=== PATIENT | female | born 1935 | race Caucasian/White ===

== ENCOUNTER → 2021-01-17 14:26 | Outpatient (BNVA) | payer MEDICARE, SELFPAY | PROVIDERS: Family Provider Family Medicine; Visit Provider Podiatrist Foot & Ankle Surgery | DX: L81.9 Disorder of pigmentation, unspecified (principal) | CPT/HCPCS: 88304 ==

== ENCOUNTER → 2021-10-28 13:37 | Outpatient (BNVA) | payer MEDICARE, SELFPAY | PROVIDERS: Family Provider Family Medicine; PCP Family Medicine; Visit Provider Clinical Nurse Specialist Adult Health | DX: J22 Unspecified acute lower respiratory infection (principal) | CPT/HCPCS: 80053; 85025; 85651; 86140 ==

== ENCOUNTER → 2022-01-01 12:35 | Outpatient (BNVA) | payer MEDICARE, SELFPAY | PROVIDERS: PCP Family Medicine; Visit Provider Nurse Practitioner Family | DX: R35.0 Frequency of micturition (principal); N39.0 Urinary tract infection, site not specified; R35.1 Nocturia; R32 Unspecified urinary incontinence | CPT/HCPCS: 81003; 87086; 99203 ==

== ENCOUNTER → 2022-01-20 10:46 | Outpatient (BNVA) | payer MEDICARE, SELFPAY | PROVIDERS: PCP Family Medicine; Visit Provider Nurse Practitioner Family | DX: N39.0 Urinary tract infection, site not specified (principal); R35.0 Frequency of micturition; R32 Unspecified urinary incontinence | CPT/HCPCS: 99213 ==

== ENCOUNTER → 2022-05-29 09:33 | Outpatient (BNVA) | payer MEDICARE, SELFPAY | PROVIDERS: PCP Family Medicine; Visit Provider Urology | DX: N39.0 Urinary tract infection, site not specified (principal) | CPT/HCPCS: 81003; 99213 ==

== ENCOUNTER 2022-11-27 17:48 | Emergency (ER) | payer MEDICARE, SELFPAY ==
[2022-11-27 17:51] VITALS: BP 144/106; PULSE 95; RESP 15; TEMP 36.7; O2SAT 97
[2022-11-27 18:00] VITALS: BP 151/91; PULSE 93; O2SAT 96
--- NOTE | 2022-11-27 18:14 | CTR_ITS ---
PROCEDURE INFORMATION: Exam: CT Head Without Contrast Exam date and time: 11/27/2022 6:23 PM Age: 87 years old Clinical indication: Injury or trauma; Fall; Blunt trauma (contusions or hematomas); Additional info: Fall head trauma TECHNIQUE: Imaging protocol: Computed tomography of the head without contrast. Radiation optimization: All CT scans at this facility use at least one of these dose optimization techniques: automated exposure control; mA and/or kV adjustment per patient size (includes targeted exams where dose is matched to clinical indication); or iterative reconstruction. REPORTING DATA: Count of CT and Cardiac NM exams in prior 12 months: This patient has received 0 known CTs and 0 known cardiac nuclear medicine studies in the 12 months prior to the current study. COMPARISON: CT head wo con* [id number] 10/29/2021 12:54 PM RADIATION DOSE METRICS: Total DLP (mGy-cm): 1200 FINDINGS: Brain: Right frontal traumatic subarachnoid hemorrhage and hemorrhagic parenchymal contusion. Right posteromedial temporal lobe small 7.5 mm focal area of hemorrhagic contusion. Punctate benign calcifications in the basal ganglia bilaterally. Moderate diffuse white matter disease likely reflecting chronic microvascular ischemic changes. Cerebral ventricles: No ventriculomegaly. Paranasal sinuses: Visualized sinuses are unremarkable. No fluid levels. Mastoid air cells: Visualized mastoid air cells are well aerated. Bones/joints: Please refer to same-day CT facial bones for findings in this area. Soft tissues: Unremarkable. CT/CT head wo con* [id number] IMPRESSION: 1. Right frontal traumatic subarachnoid hemorrhage and hemorrhagic parenchymal contusion. 2. Right posteromedial temporal lobe small 7.5 mm focal area of hemorrhagic contusion. 3. Punctate benign calcifications in the basal ganglia bilaterally. 4. Moderate diffuse white matter disease likely reflecting chronic microvascular ischemic changes. 5. Please refer to same-day CT facial bones for findings in this area.
--- NOTE | 2022-11-27 18:14 | CTR_ITS ---
PROCEDURE INFORMATION: Exam: CT Maxillofacial Without Contrast Exam date and time: 11/27/2022 6:23 PM Age: 87 years old Clinical indication: Injury or trauma; Fall; Blunt trauma (contusions or hematomas); Additional info: Fall head trauma, right orbit trauma TECHNIQUE: Imaging protocol: Computed tomography of the face without contrast. Radiation optimization: All CT scans at this facility use at least one of these dose optimization techniques: automated exposure control; mA and/or kV adjustment per patient size (includes targeted exams where dose is matched to clinical indication); or iterative reconstruction. REPORTING DATA: Count of CT and Cardiac NM exams in prior 12 months: This patient has received 0 known CTs and 0 known cardiac nuclear medicine studies in the 12 months prior to the current study. COMPARISON: [place] Facial B[place] IV* [id number] 09/25/2016 7:32 PM RADIATION DOSE METRICS: Total DLP (mGy-cm): 630 FINDINGS: Orbital cavities: Right inferior orbital wall and lateral orbital wall minimally displaced fractures with associated mild intra orbital emphysema. Bones/joints: Right zygomatic arch nondisplaced fracture. Paranasal sinuses: Right maxillary sinus anterior and lateral wall mildly displaced fractures. Partial opacification of the paranasal sinuses. Soft tissues: Unremarkable. CT/CT facial bones wo con* [id number] IMPRESSION: 1. Right zygomatic arch nondisplaced fracture. 2. Right inferior orbital wall and lateral orbital wall minimally displaced fractures with associated mild intra orbital emphysema. 3. Right maxillary sinus anterior and lateral wall mildly displaced fractures. 4. Partial opacification of the paranasal sinuses.
--- NOTE | 2022-11-27 18:14 | CTR_ITS ---
PROCEDURE INFORMATION: Exam: CT Cervical Spine Without Contrast Exam date and time: 11/27/2022 6:23 PM Age: 87 years old Clinical indication: Injury or trauma; Fall; Blunt trauma; Additional info: Fall pain TECHNIQUE: Imaging protocol: Computed tomography of the cervical spine without contrast. Radiation optimization: All CT scans at this facility use at least one of these dose optimization techniques: automated exposure control; mA and/or kV adjustment per patient size (includes targeted exams where dose is matched to clinical indication); or iterative reconstruction. REPORTING DATA: Count of CT and Cardiac NM exams in prior 12 months: This patient has received 0 known CTs and 0 known cardiac nuclear medicine studies in the 12 months prior to the current study. COMPARISON: CT head wo con* [id number] 10/29/2021 12:54 PM RADIATION DOSE METRICS: Total DLP (mGy-cm): 130 FINDINGS: Bones/joints: Multilevel degenerative disc space narrowing throughout the spine. C2-C3: No significant disc bulge or herniation. No severe spinal canal stenosis. No significant neural foraminal narrowing. C3-C4: No significant disc bulge or herniation. No severe spinal canal stenosis. No significant neural foraminal narrowing. C4-C5: No significant disc bulge or herniation. No severe spinal canal stenosis. No significant neural foraminal narrowing. C5-C6: No significant disc bulge or herniation. No severe spinal canal stenosis. No significant neural foraminal narrowing. C6-C7: No significant disc bulge or herniation. No severe spinal canal stenosis. No significant neural foraminal narrowing. C7-T1: No significant disc bulge or herniation. No severe spinal canal stenosis. No significant neural foraminal narrowing. Lungs: Lung apices are normal. Soft tissues: Unremarkable. CT/CT cervical spin wo con* [id number] IMPRESSION: Negative for fracture or dislocation.
--- NOTE | 2022-11-27 18:14 | XRR_ITS ---
PROCEDURE INFORMATION: Exam: XR Right Forearm Exam date and time: 11/27/2022 6:32 PM Age: 87 years old Clinical indication: Injury or trauma; Fall; Additional info: Fall trauma TECHNIQUE: Imaging protocol: Radiologic exam of the right forearm. Views: 2 views. COMPARISON: No relevant prior studies available. FINDINGS: Bones/joints: Subtle suspected distal radial metaphyseal fracture with possible involvement at the radiocarpal joint, a CT could further characterize this. 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 Soft tissues: Normal. XR/XR forearm RT 2V [id number] IMPRESSION: 1. Subtle suspected distal radial metaphyseal fracture with possible involvement at the radiocarpal joint, a CT could further characterize this. 2. 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
--- NOTE | 2022-11-27 18:16 | ED_ITS ---
HPI - Fall General: Chief Complaint: Fall Stated Complaint: FALL Time Seen by Provider: 11/27/22 18:04 History of Present Illness: Patient presents to the ER by EMS status post fall with positive loss of consciousness. Patient does remember how she fell but family states she was usi ng her walker in the kitchen and when they left the room they heard her fall. Family states loss of consciousness for couple minutes. Patient is now alert and oriented to her baseline. Denies any pain at this time except for her right arm region. Patient has swelling and a large ecchymosis to her right eyelid periorbital region. Patient is in a c-collar per EMS secondary to mechanism of action. Patient probably has a laceration to right temporal area because there is dried blood on the right side of her head. Patient is not on any blood thinners. Review of Systems General: Reports: 10 or more systems reviewed and unremarkable except in HPI and below PFSH ED PFSH: Medical History Dyslipidemia GERD (gastroesophageal reflux disease) Hypertension IBS (irritable bowel syndrome) Recurrent UTI Surgical History History of partial hysterectomy Family History Mother , AT AGE 84 Heart attack Father No problems noted. Social History Smoking and tobacco status: never smoked Alcohol intake: never Substance/Drug Use: never Marital status: / Current occupational status: retired Physical Exam Const: COMMON NORMALS: no acute distress, average body habitus, patient oriented x3, no limitations, healthy appearing, alert and well nourished HENMT: COMMON NORMALS: normocephalic, hearing grossly normal bilaterally, external ears normal, Normal external nose present and moist oral mucous membranes; head/scalp not atraumatic (Positive swelling and ecchymosis to right periorbital region, probable lace) HEAD & SCALP: normocephalic; not atraumatic (Positive swelling and ecchymosis to right periorbital region, probable lace) NOSE: Normal external nose present EXTERNAL EAR: Yes external ears normal Eye: COMMON NORMALS: Equal, round and reactive pupils present, EOMs intact bilaterally, conjunctivae normal and no scleral icterus CONJUNCTIVA: Yes conjunctivae normal PUPIL: Yes Equal, round and reactive pupils present Neck/C-Spine: COMMON NORMALS: no JVD OTHER: C-spine in C-spine collar. Patient says no tenderness. Lymph: LYMPHATIC: no lymphadenopathy noted Chest: COMMONS NORMALS: normal inspection of the chest and normal palpation of entire chest wall Resp: COMMON NORMALS: normal respiratory effort, No retractions, No use of accessory muscles and clear to auscultation bilaterally AUSCULTATION: clear to auscultation bilaterally Cardio: COMMON NORMALS: no JVD, regular rate, regular rhythm, S1 normal heart sound present, S2 normal heart sound present, No gallops present (Cardio), No clicks present (Cardio), No murmurs present (Cardio) and No rub (Cardio) RATE: regular rate RHYTHM: regular rhythm HEART SOUNDS: S1 normal heart sound present and S2 normal heart sound present GI: COMMON NORMALS: Normal to inspection, nondistended, normoactive bowel sounds present, Soft to palpation, non-tender, No hepatosplenomegaly present and no masses PALPATION: Yes Soft to palpation and Yes No hepatosplenomegaly present : COMMON NORMALS: Yes no CVA tenderness BLADDER/KIDNEY EXAM: Yes no CVA tenderness Back/Pelvis: COMMON NORMALS: no CVA tenderness Extremity: NARRATIVE EXTREMITY EXAM: Skin tear to right forearm and elbow region. Otherwise no complaints and full range of motion. Neuro: COMMON NORMALS: patient oriented x3 SENSORIUM/ORIENTATION: Yes alert Course Vital Signs: Vital signs: Vital Signs Temperature 98.0 F 11/27/22 17:51 Pulse Rate 95 11/27/22 17:51 Respiratory Rate 15 11/27/22 17:51 Blood Pressure 144/106 11/27/22 17:51 Pulse Oximetry 97 11/27/22 17:51 Oxygen Delivery Me thod Room Air 11/27/22 17:51 MDM - Fall Medical Decision Making Patient presents to the ER by EMS from a fall with positive loss consciousness. Patient has significant swelling and tenderness over her right periorbital region. A CT scan and x-rays were obtained. CT scan showed multiple zygomatic orbital wall type fractures and right frontal traumatic subarachnoid hemorrhage and hemorrhagic parenchymal contusion, right posterior medial temporal lobe area of hemorrhagic contusion. Forearm x-ray shows subtle suspected distal radial metaphyseal fracture with possible involvement of the radiocarpal joint. Family was notified patient will be transferred to the appropriate level trauma facility. [facility] in [place] was called Dr. Reid ER physician accepted in transfer. Patient will be transferred by ground secondary to family's wishes Differential Diagnosis Unlikely syncope, dislocation of shoulder region, fracture of wrist, compression fracture, concussion with loss of consciousness or concussion without loss of consciousness Medical Records I reviewed the patient's medical records. Lab Data I reviewed the patient's lab results. Radiology Impressions Cervical Spine CT 11/27/22 18:14 IMPRESSION: Negative for fracture or dislocation. Face CT 11/27/22 18:14 IMPRESSION: 1. Right zygomatic arch nondisplaced fracture. 2. Right inferior orbital wall and lateral orbital wall minimally displaced fractures with associated mild intra orbital emphysema. 3. Right maxillary sinus anterior and lateral wall mildly displaced fractures. 4. Partial opacification of the paranasal sinuses. ADDENDUM: 11/27/221900 Please refer to same-day CT brain for description of findings in the brain including intracranial hemorrhage. Forearm X-Ray 11/27/22 18:14 IMPRESSION: 1. Subtle suspected distal radial metaphyseal fracture with possible involvement at the radiocarpal joint, a CT could further characterize this. 2. 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 Head CT 11/27/22 18:14 IMPRESSION: 1. Right frontal traumatic subarachnoid hemorrhage and hemorrhagic parenchymal contusion. 2. Right posteromedial temporal lobe small 7.5 mm focal area of hemorrhagic contusion. 3. Punctate benign calcifications in the basal ganglia bilaterally. 4. Moderate diffuse white matter disease likely reflecting chronic microvascular ischemic changes. 5. Please refer to same-day CT facial bones for findings in this area. ADDENDUM: 11/27/221900 THIS REPORT CONTAINS FINDINGS THAT MAY BE CRITICAL TO PATIENT CARE. The findings were verbally communicated via telephone conference with Mao Ford at 7:00 PM CDT on 11/27/2022. The findings were acknowledged and understood. Discharge Plan Discharge Patient Disposition: Xfer Short-Term Hosp Clinical Impression: Subarachnoid hemorrhage Fall Qualifiers: Encounter type: initial encounter Qualified Code(s): W19.XXXA - Unspecified fall, initial encounter Multiple closed facial bone fractures Qualifiers: Encounter type: initial encounter Qualified Code(s): S02.92XA - Unspecified fracture of facial bones, initial encounter for closed fracture Condition: Stable Referrals: Guillermo Paz DO [Primary Care Provider] - Coding Level of Care Code ED [facility] for [facility] Cespedes
[2022-11-27 19:00] VITALS: BP 164/98; PULSE 95; O2SAT 98
[2022-11-27 19:22] LABS: Basophils % 0.2 %; Eosinophils % 0.2 %; Hematocrit 38.8 % (36-47); Lymphocytes % 10.5 %; Mean Corpuscular HGB Conc 34.8 g/dL (30-55); Mean Corpuscular Hemoglobin 31.7 pg (27-33); Mean Corpuscular Volume 91.1 fl (85-98); Mean Platelet Volume 10.8 fL (7.4-10.4); Monocytes # 0.6 10^3/uL (0.2-0.9); Neutrophils # 8.19 10^3/uL (1.8-7.7); Neutrophils % 82.6 %; Nucleated Red Blood Cells % 0 %; Platelet Count 156 10^3/cmm (157-399); Red Blood Count 4.26 10^6/uL (3.85-5.65); Red Cell Distribution Width 13.2 % (12.1-15.1); White Blood Count 9.92 10^3/uL (3.29-11.43)
[2022-11-27 19:28] LABS: INR 1.01 (0.8-1.2)
[2022-11-27 19:30] VITALS: BP 144/83; PULSE 100; O2SAT 97
[2022-11-27 19:33] LABS: Alanine Aminotransferase 55 U/L (0-33); Albumin Level 4.5 g/dL (3.5-5.2); Alkaline Phosphatase 126 U/L (35-105); Anion Gap 15.1 (5-19); Aspartate Amino Transferase 37 U/L (0-32); Blood Urea Nitrogen 22 mg/dL (8-23); Carbon Dioxide 25 mmol/L (22-29); Chloride 97 mmol/L (98-107); Globulin 2.3 g/dL (1.3-4.6); Glucose 170 mg/dL (65-115); Osmolality Calculated 283 mOsm/kg (285-295); Potassium 4.1 mmol/L (3.5-5.1); Sodium 133 mmol/L (136-145); Total Bilirubin 0.6 mg/dL (0.15-1.2); Total Protein 6.8 g/dL (6.6-8.7)
[2022-11-27 20:00] VITALS: BP 147/82; PULSE 101; O2SAT 97
--- NOTE | 2022-11-27 20:15 | PC.NURSE ---
REPORT CALLED TO STELLA SCHUSTER PT WAITING ON EMS RIDE TO FACILITY.
[2022-11-27 20:30] VITALS: BP 141/81; PULSE 104; O2SAT 97
== END 2022-11-27 21:12 | disposition short-term general hospital (02) ==
PROVIDERS: Emergency Provider Emergency Medicine; PCP Family Medicine
DX: S06.6X1A Traumatic subarachnoid hemorrhage with loss of consciousness of 30 minutes or less, initial encounter (principal); S02.40EA Zygomatic fracture, right side, initial encounter for closed fracture; S02.31XA Fracture of orbital floor, right side, initial encounter for closed fracture; S02.841A Fracture of lateral orbital wall, right side, initial encounter for closed fracture; S02.40CA Maxillary fracture, right side, initial encounter for closed fracture; W18.39XA Other fall on same level, initial encounter; E78.5 Hyperlipidemia, unspecified; I10 Essential (primary) hypertension
CPT/HCPCS: 36415; 70450; 70486; 72125; 73090; 80053; 85025; 85610; 99285

== ENCOUNTER → 2023-01-12 15:23 | Outpatient (BNVA) | payer MEDICARE, SELFPAY | PROVIDERS: PCP Family Medicine; Visit Provider Podiatrist Foot & Ankle Surgery | DX: L60.3 Nail dystrophy (principal); I73.9 Peripheral vascular disease, unspecified | CPT/HCPCS: 11721; 99203 ==

== ENCOUNTER 2023-02-10 13:04 | Oncology outpatient (recurring) (ONCR) | payer MEDICARE, SELFPAY ==
[2023-02-10 13:24] VITALS: BP 149/86; PULSE 80; RESP 18; TEMP 37.2; O2SAT 99
[2023-02-10] MEDS: acetaminophen 325 mg Tablet 650 MG PO (13:37)
[2023-02-10] MEDS: zoledronic acid 5 MG in empty flexible container 1 EACH 400 MG IV (13:53)
== END 2023-02-19 23:59 | disposition home or self-care (01) ==
LOC: ONCMED 13:05
PROVIDERS: PCP Family Medicine; Visit Provider Nurse Practitioner
DX: E55.9 Vitamin D deficiency, unspecified (principal)
CPT/HCPCS: 96365; J3489

== ENCOUNTER → 2023-04-28 11:26 | Outpatient (BNVA) | payer MEDICARE, SELFPAY | PROVIDERS: PCP Family Medicine; Visit Provider Podiatrist Foot & Ankle Surgery | DX: L60.3 Nail dystrophy (principal); I73.9 Peripheral vascular disease, unspecified | CPT/HCPCS: 11721 ==

== ENCOUNTER → 2023-07-22 11:23 | Outpatient (BNVA) | payer MEDICARE, SELFPAY | PROVIDERS: PCP Family Medicine; Visit Provider Podiatrist Foot & Ankle Surgery | DX: L60.8 Other nail disorders (principal); L60.3 Nail dystrophy; I73.9 Peripheral vascular disease, unspecified | CPT/HCPCS: 11721 ==

== ENCOUNTER → 2023-10-27 11:25 | Outpatient (BNVA) | payer MEDICARE, SELFPAY | PROVIDERS: PCP Family Medicine; Visit Provider Podiatrist Foot & Ankle Surgery | DX: L60.8 Other nail disorders (principal); L60.3 Nail dystrophy; I73.9 Peripheral vascular disease, unspecified | CPT/HCPCS: 11721 ==